=== PATIENT | female | born 1980 | race Caucasian/White ===

== ENCOUNTER 2023-07-24 18:43 | Emergency (ER) | payer OTHER, SELFPAY ==
--- NOTE | ~2023-07-24 | XR_ITS ---
EXAM: XR foot RT min 3V DATE: 07/24/2023 19:09 HISTORY: STUBBING INJURY, PAIN TO 2 3 DIGITS . COMPARISON: None available. FINDINGS: Lateral view limited by overlapping toes. Normal mineralization. No fracture or dislocatio n. No lytic or blastic lesion. Degenerative change and changes of prior bunionectomy at the first MTP joint. No erosion or periosteal change. Soft tissues within normal limits. IMPRESSION: No acute osseous finding in the right foot. Reviewed, dictated and finalized at location K.
[2023-07-24 18:51] VITALS: BP 138/86; PULSE 89; RESP 16; TEMP 36.9; O2SAT 100
--- NOTE | 2023-07-24 18:56 | ED.GENADULT ---
HPI - General Adult General Chief complaint: Extremity Injury, Lower Stated complaint: right foot inj Source: patient, RN notes reviewed and old records reviewed Mode of arrival: ambulatory Limitations: no limitations History of Present Illness HPI narrative: 43-year-old female to [facility] with complaint pain in 2nd and 3rd toes of right foot. Patient reports that earlier today she was running and playing a cooler behind her when she stubbed her right foot into a tree root. Patient denies falling, Numbness, tingling. Patient reports pain 7/10, swelling, redness to 2nd and 3rd toes on right foot. Patient reports history bunionectomy to right foot. Patient ambulated into triage with steady gait. Patient in no acute distress. Related Data Home Medications Medication Instructions Recorded Confirmed bupropion HCl 300 mg 24 hr tablet, 300 mg PO DAILY 07/24/23 07/24/23 extended release pantoprazole 40 mg tablet,delayed 40 mg PO DAILY 07/24/23 07/24/23 release sertraline 50 mg tablet 50 mg PO DAILY 07/24/23 07/24/23 Allergies Allergy/AdvReac Type Severity Reaction Status Date / Time MEPERIDINE HCL AdvReac Mild Hypotension Uncoded 07/24/23 18:59 Review of Systems Review of Systems: All systems reviewed & are unremarkable except as noted in HPI and below Constitutional: Constitutional: Reports no additional constitutional complaints Eyes: Eyes: Reports no additional eye complaints ENT: Reports system reviewed and no additional complaints, except as documented Cardiovascular: Cardiovascular: Reports no additional cardiovascular complaints, Denies chest pain and Denies dyspnea Respiratory: Respiratory: Reports no additional respiratory complaints, Denies cough and Denies dyspnea Musculoskeletal: Musculoskeletal: Reports as per HPI and Reports arthralgias ( 2nd and 3rd digit right foot) Neurologic: Reports system reviewed and no additional complaints, except as documented, Denies numbness, Denies Sensory deficit (Neuro), Denies tingling and Denies weakness Psychiatric: Psychiatric: Reports no additional psychiatric complaints PMFSH Comments At the time of my signature, I reviewed and agree with the nursing past medical, surgical, social, and family history. There is no relevant family history pertinent to the patient complaint. Exam Const: General: cooperative, healthy appearing, comfortable, no acute distress, alert and well nourished Nutritional Appearance: well nourished Orientation/consciousness: patient oriented x3 Limitations: no limitations HENMT: Head: normal to inspection Ears: external ears normal Face/Nose/Sinus: Normal external nose present, Normal nares present, normal facial exam, No erythema and No edema Face and sinus: normal facial exam, no erythema and no edema Mouth: Yes Normal oral and palatal mucosa present Eyes: General: appearance normal, both eyes and all related structures Neck: Neck: normal visual inspection, full ROM and no meningeal signs Lymphatic: no lymphadenopathy noted and no lymphedema noted Chest: Chest palpation & inspection: normal inspection of the chest Resp: Effort & Inspection: normal respiratory effort and able to speak in complete sentences Auscultation: clear to auscultation bilaterally Cardio: Jugular venous distension: no JVD Rate: regular rate Rhythm: regular rhythm Back/Spine/Pelvis: Cervical Spine: cervical ROM normal Skin: General skin exam: normal color, no rashes or lesions noted and turgor normal Neuro: General: patient oriented x3, gait normal, moves all extremities and no meningeal signs Speech: normal speech Gait exam (Neuro): Normal gait present Extrem: General: full ROM and capillary refill normal Right lower extremity: full ROM, normal capillary refill, edema ( 2nd and 3rd digit right foot) and foot Details: normal capillary refill, tenderness ( 2nd and 3rd digit right foot) and edema ( 2nd and 3rd digit right foot); no unusual wa
== END 2023-07-24 19:30 | disposition home or self-care (01) ==
PROVIDERS: Emergency Provider Nurse Practitioner Family; PCP Family Medicine
DX: S90.121A Contusion of right lesser toe(s) without damage to nail, initial encounter (principal); S93.504A Unspecified sprain of right lesser toe(s), initial encounter; T14.90XA Injury, unspecified, initial encounter
CPT/HCPCS: 73630; 99203; G0463

== ENCOUNTER 2024-03-30 18:02 | Emergency (ER) | payer OTHER, SELFPAY ==
[2024-03-30 18:15] VITALS: BP 139/65; PULSE 80; RESP 16; TEMP 36.8; O2SAT 99
--- NOTE | 2024-03-30 18:29 | ED_ITS ---
HPI - Eye Problem General Chief complaint: Eye Problems Stated complaint: poss pink eye Time Seen by Provider: 03/30/24 18:22 Source: patient, RN notes reviewed and old records reviewed Mode of arrival: ambulatory Limitations: no limitations History of Present Illness HPI Narrative: 43-year-old female presents to [facility] with bilateral redness and drainage initially starting on Wednesday to the right eye which then spread Wednesday to both eyes. Patient states bilateral eyes are red itching and burning with increase crusting this morning noted and mucoid drainage noted to bilateral eyes. Patient reports that she has some fuzziness to her vision at times but denies any acute change in vision denies any sharp pain to her eyes. MD chief complaint: eye redness and other (mucoid drainage bilateral eyes) Onset (ago): day(s) (3) Duration: progressively worsening Location: both eyes Eye Symptoms: burning, redness, itching and discharge Severity: moderate Treatments Prior to Arrival: other (warm compresses) Related Data Home Medications ?Medication ?Instructions ?Recorded ?Confirmed ?Last Taken ?Type bupropion HCl 300 mg 24 hr tablet, 300 mg PO DAILY 07/24/23 03/30/24 Unknown History extended release pantoprazole 40 mg tablet,delayed 40 mg PO DAILY 07/24/23 03/30/24 Unknown History release sertraline 50 mg tablet 50 mg PO DAILY 07/24/23 07/24/23 Unknown History Allergies Allergy/AdvReac Type Severity Reaction Status Date / Time MEPERIDINE HCL AdvReac Mild Hypotension Uncoded 03/30/24 18:11 Review of Systems Review of Systems: CONSTITUTIONAL: Denies fever, chills, or sweats. EYES: Denies visual changes. Reports redness, irritation, discharge to bilateral eyes initially starting Wednesday to right eye and has spread bilateral eyes on Wednesday, increased crusting this morning, burning pain and mucoid drainage ENT: Denies rhinorrhea, congestion, sore throat, or otalgia. CARDIOVASCULAR: Denies chest pain, palpitations, or edema. RESPIRATORY: Denies cough or dyspnea. SKIN: Denies rash or itching. NEUROLOGIC: Denies headache All systems reviewed & are unremarkable except as noted in HPI and below PMFSH Past Medical History Medical History (Updated 03/30/24 @ 19:20 by Daya Devi NP) Depression UTI (urinary tract infection) Surgical History Surgical History S/P repair of ligament of ankle left H/O tubal ligation Social History Social History Smoking status: Current every day smoker Tobacco type: cigarettes Alcohol intake: current Alcohol use details: social Substance use type: does not use Living arrangements: with family Gender identity (if verbalized by the patient): Female Comments At time of signature, agree with nursing past medical, surgical, social and family history. There is no relevant family history pertinent to the presenting complaint Exam Narrative: GENERAL: Well-appearing, well-nourished, and in no acute distress. HEAD: Normocephalic, atraumatic. EYES: PERRLA and EOMI. Upper and lower eyelids unremarkable. No periorbital cellulitis noted. Sclera and conjunctivae injected to bilateral eyes with mucoid drainage, denies any sharp pain to eyes, mucoid drainage noted ENT: Nares clear, no rhinorrhea or epistaxis. Mucous membranes moist. NECK: Supple. no lymphadenopathy CHEST: Clear to auscultation. No respiratory distress. SAO2 99% on room air HEART: Regular rate and rhythm. No murmur heard. Normal peripheral pulses. SKIN: Warm, dry, no rash. NEURO: No focal deficits. Alert and oriented x3. Course Course Emergency Course: Patient is aware of diagnosis, understands and agrees to treatment plan. Anticipatory guidance given. Patient agrees to follow-up as directed and is aware of reasons to seek care at the emergency department. Portions of this record may have been created with voice recognition software Level of Care: Express Care Visit Vital Signs Vital signs: Vital Signs Temperature 36.8 C 03/30/24 18:15 Pulse Rate 80 03/30/24 18:15 Respiratory Rate 16 03/30/24 18:15 Blood Pressure 139/65 03/30/24 18:15 Pulse Oximetry 99 03/30/24 18:15 Oxygen Delivery Room Air 03/30/24 18:15 Temperature 36.8 C 03/30/24 18:15 Pulse Rate 80 03/30/24 18:15 Respiratory Rate 16 03/30/24 18:15 Blood Pressure 139/65 03/30/24 18:15 Pulse Oximetry 99 03/30/24 18:15 Oxygen Delivery Room Air 03/30/24 18:15 Reviewed MDM - Eye Problem MDM Narrative Medical decision making narrative: Consideration of the following conditions may be warranted for the presenting problem, they are not final diagnoses: Bacterial conjunctivitis, allergic conjunctivitis, viral conjunctivitis, foreign body, blepharitis, chalazion, hordeolum, corneal abrasion.? Exam findings show no acute concerns or changes; patient is non-toxic appearing and is in no distress.? Patient is appropriate for outpatient treatment and follow-up. Differential Diagnosis Differential diagnosis: Likely conjunctivitis, subconjunctival hemorrhage and other (mucoid drainage bilateral eyes) Medical Records Attestation: I reviewed the patient's medical records. Critical Care Time Critical Care Time Critical Care Time: No Discharge Plan Discharge Clinical Impression: Conjunctivitis Qualifiers: Conjunctivitis type: acute Acute conjunctivitis type: unspecified Laterality: bilateral Qualified Code(s): H10.33 - Unspecified acute conjunctivitis, bilateral Patient Disposition: Home, Self-Care Condition: Stable Instructions: Antibiotic Form, Conjunctivitis (ED) Additional Instructions: Cold compresses to the eyes for comfort May need warm compresses to remove debris in the morning When cleaning the eyes used a washcloth in one direction then change washcloths or use a cotton ball in one direction and then his cotton balls Eyedrops as directed--may be more soothing if left in the refrigerator Do not share medicine--do not touch the eye with the medicine Tylenol or ibuprofen for pain Avoid screen time--television, computer, tablet or phone. Also no reading or driving Follow-up with PCP or design verification engineer as directed Zyrtec or Claritin 10 daily If your symptoms persist, change or worsen significantly before you can contact your personal physician then please, without delay, go to the emergency department for further evaluation. Follow-up with PCP in 7-10 days or sooner if needed Follow up with PCP soon in regards to your blood pressure which is elevated above threshold for referral. Blood pressure above 120/80 may indicate pre- hypertension. 139/65 Patient Language: [place] Prescriptions: New ofloxacin 0.3 % drops See Rx Instructions .ROUTE .COMPLEX Qty: 10 0RF Rx Instructions: put 1-2 drps into affected eye(s) every 2-4 h x 2 days, then 1-2 drps 4 time s/day days 3-7 No Action sertraline 50 mg tablet 50 mg PO DAILY bupropion HCl 300 mg tablet extended release 24 hr 300 mg PO DAILY pantoprazole 40 mg tablet,delayed release (DR/EC) 40 mg PO DAILY Follow-up/Referrals: Yovanny,Brandin Shepherd MD [Primary Care Provider] - Stand Alone Forms: Work/School Release IP Time of Disposition: 18:44 Quality Nahid Coma Scale Eyes: Open Verbal: Oriented and Alert Motor: Follows Commands Nahid Coma Total Score: 15
== END 2024-03-30 18:48 | disposition home or self-care (01) ==
PROVIDERS: Emergency Provider Registered Nurse; PCP Family Medicine
DX: H10.33 Unspecified acute conjunctivitis, bilateral (principal); Z79.899 Other long term (current) drug therapy; F17.210 Nicotine dependence, cigarettes, uncomplicated
CPT/HCPCS: 99213; G0463

== ENCOUNTER 2024-09-03 18:24 | Emergency (ER) | payer OTHER, SELFPAY ==
--- NOTE | 2024-09-03 18:27 | ED_ITS ---
HPI - Wound/Laceration General Chief Complaint: Skin/Abscess/Foreign Body Stated Complaint: Skin Sore/Fever/Vomiting Time Seen by Provider: 09/03/24 18:34 Source: patient Mode of arrival: ambulatory Limitations: no limitations History of Present Illness HPI narrative: 44-year-old female presented for complaint of a painful cyst to the right upper back, worsening for one week. Endorses associated nausea vomiting, and fever. Says she has squeeze the site and it has drained green pus 4 days ago. Related Data Home Medications ?Medication ?Instructions ?Recorded ?Confirmed ?Last Taken ?Type bupropion HCl 300 mg 24 hr tablet, 300 mg PO DAILY 07/24/23 03/30/24 Unknown History extended release pantoprazole 40 mg tablet,delayed 40 mg PO DAILY 07/24/23 03/30/24 Unknown History release sertraline 50 mg tablet 50 mg PO DAILY 07/24/23 07/24/23 Unknown History Allergies Allergy/AdvReac Type Severity Reaction Status Date / Time MEPERIDINE HCL AdvReac Mild Hypotension Uncoded 03/30/24 18:11 Review of Systems Review of Systems: CONSTITUTIONAL: Denies body aches, fever, chills, or sweats. EYES: Denies visual changes, redness, or discharge. ENT: Denies rhinorrhea, congestion CARDIOVASCULAR: Denies chest pain, palpitations, or edema. RESPIRATORY: Denies cough or dyspnea. GASTROINTESTINAL: Denies abdominal pain, nausea, vomiting, or diarrhea. SKIN: per hpi MUSCULOSKELETAL: Denies back pain, joint pain, or myalgia. NEUROLOGIC: Denies headache, numbness, tingling, or weakness. [facility] Past Medical History Medical History (Updated 09/03/24 @ 18:47 by Melody Hutton APRN) Depression UTI (urinary tract infection) Surgical History Surgical History S/P repair of ligament of ankle left H/O tubal ligation Social History Social History Smoking status: Current every day smoker Tobacco type: cigarettes Alcohol intake: current Alcohol use details: social Substance use type: does not use Living arrangements: with family Gender identity (if verbalized by the patient): Female Comments At time of signature, I have reviewed and agree with nursing past medical, surgical, social and family history unless otherwise noted. Please see nursing chart for further information. There is no relevant family history pertinent to the presenting complaint Exam Narrative: GENERAL: Well-appearing HEAD: Normocephalic, atraumatic. EYES: conjunctivae clear, and EOMI. ENT: Mucous membranes moist. Oropharynx without edema, erythema or lesions. NECK: Supple. No lymphadenopathy CHEST: Clear to auscultation. HEART: Regular rate and rhythm. SKIN: Warm, dry. right trapezius area with 3cm round erythematous raised abscess, small area of fluctuance, no active drainage. Site is tender. NEURO: Alert and oriented x3. Course Course Emergency Course: Patient is aware of diagnosis, understands and agrees to treatment plan. Anticipatory guidance given. Patient agrees to follow-up as directed and is aware of reasons to seek care at the emergency department. Portions of this record may have been created with voice recognition software Level of Care: Express Care Visit Vital Signs Vital signs: Vital Signs Temperature 98.7 F 09/03/24 18:28 Pulse Rate 94 09/03/24 18:28 Respiratory Rate 16 09/03/24 18:28 Blood Pressure 184/94 H 09/03/24 18:28 Pulse Oximetry 98 09/03/24 18:28 Oxygen Delivery Room Air 09/03/24 18:28 Temperature 98.7 F 09/03/24 18:28 Pulse Rate 94 09/03/24 18:28 Respiratory Rate 16 09/03/24 18:28 Blood Pressure 184/94 H 09/03/24 18:28 Pulse Oximetry 98 09/03/24 18:28 Oxygen Delivery Room Air 09/03/24 18:28 Reviewed Procedures Abscess I/D back: Date of Incision: 09/03/24 Local Anesthetic: lidocaine 1% Amount of anesthesia used (mL): 1 Technique: incised with #11 blade Irrigation: Yes Packing used?: none I&D Results: Pus and Blood Abcess I&D Additional Comments: The procedure and its alternatives were reviewed with patient. Risks were reviewed with patient including infection and damage to nearby structures. Patient provided verbal informed consent. The patient was positioned appropriately. Local anesthesia achieved. Single straight Incision made to center of most fluctuant area. Moderate amount of thick purulent discharge expelled with manual pressure. Wound irrigated and probed for loculations. See above. Pt tolerated the procedure well, no complications. Dressing applied per RN. MDM - Wound/Laceration MDM Narrative Medical decision making narrative: Discussed physical exam findings , patient tolerated I&D. Advised supportive measures and signs/symptoms to go to the ER. Pt is appropriate for outpt treatment and f/u. Differential Diagnosis Differential diagnosis: Likely abscess and other (cellulitis, folliculitis) Discharge Plan Discharge Clinical Impression: Abscess of skin or subcutaneous tissue Patient Disposition: Home Condition: Stable Instructions: Antibiotic Form, Abscess (ED) Additional Instructions: Dermatologists: [facility] [place] [address] [facility] [phone] [facility] [address] [facility] [phone] [facility] [address] [place] [address] You had an abscess drained today. You may shower and Cleanse with warm soapy water Warm compresses at least 4 times a day to the site to help expel any additional drainage. Keep your wound covered while draining Take antibiotic as directed Tylenol and ibuprofen every 8 hours for pain as needed Follow up with your primary care physician in 2-3 days for a wound check. Go to the Emergency Department immediately if you develop any of the following symptoms: Fevers, Increased redness, pain, or swelling around where your abscess was, generalized weakness or vomiting or any other concerns Patient Language: [place]ese Prescriptions: New doxycycline hyclate 100 mg tablet 100 mg PO BID 7 Days Qty: 14 0RF No Action sertraline 50 mg tablet 50 mg PO DAILY bupropion HCl 300 mg tablet extended release 24 hr 300 mg PO DAILY pantoprazole 40 mg tablet,delayed release (DR/EC) 40 mg PO DAILY ofloxacin 0.3 % drops See Rx Instructions .ROUTE .COMPLEX Qty: 10 0RF Rx Instructions: put 1-2 drps into affected eye(s) every 2-4 h x 2 days, then 1-2 drps 4 times/day days 3-7 Follow-up/Referrals: Yovanny,Brandin Shepherd MD [Primary Care Provider] - Stand Alone Forms: Work/School Release IP Time of Disposition: 19:10
[2024-09-03 18:28] VITALS: BP 184/94; PULSE 94; RESP 16; TEMP 37.1; O2SAT 98
== END 2024-09-03 19:18 | disposition home or self-care (01) ==
PROVIDERS: Emergency Provider Nurse Practitioner Family; PCP Family Medicine
DX: L02.212 Cutaneous abscess of back [any part, except buttock and flank] (principal); F17.210 Nicotine dependence, cigarettes, uncomplicated
CPT/HCPCS: 10060; 99213; G0463